=== PATIENT | male | born 1960 | race Caucasian/White ===

== ENCOUNTER 2022-03-02 11:15 | Emergency (ER) | payer OTHER ==
[~2022-03-02] VITALS: Ht 182.9 cm; Wt 108.9 kg
--- NOTE | 2022-03-02 11:25 | NUR ---
1) Patient arrived in ER accompanied by . 2) C/o of pr bleeding for since last night, more this morning. 3) Patient denies pain. 4) Patient refused to sit because of the possibility of soiling his trousers. Encouraged patient to lie on his sides. 5) Cleaned patient: (a) Obvious signs of bleeding (b) Blood looks fresh and had clotted 6) Awaiting to be seen by ER MD.
[2022-03-02] MEDS ORDERED: OLME20TA13 PO (11:30)
--- NOTE | 2022-03-02 11:54 | NUR ---
1) Patient seen by MD: (a) OH examination indicates external bleeing (b) Patient education on prevention of constipation provided. (c) Patient education on non-pharmacetical medication for pain provided. 2) PLAN: (a) Check patient's hgb. (b) If hgb is ok - discharge home (c) To see PCP if bleeding worsens or come back to ER. (d) Labs ordered at the time of this report.
[2022-03-02 12:13] LABS: HEMATOCRIT 41.6 % (36.7-47.1); MEAN CORPUSCULAR HEMOGLOBIN 31.5 uug (23.8-33.4); MEAN CORPUSCULAR VOLUME 91.2 fL (73.0-96.2); PLATELET COUNT (AUTO) 232 K/uL (152-348)
[2022-03-02 12:27] LABS: CREATININE 0.8 mg/dL (0.6-1.3); POTASSIUM 4.1 mmol/L (3.5-5.1)
--- NOTE | 2022-03-02 13:13 | NUR ---
Patient discharged to home in stable condition. Written and verbal after care instructions given. Patient verbalizes understanding of instructions. Stressed follow up or return to ER for worsening s/s.
== END 2022-03-02 13:13 | disposition home or self-care (01) ==
LOC: ER 11:15
DX: K64.4 Residual hemorrhoidal skin tags (principal); I10 Essential (primary) hypertension
CPT/HCPCS: 36415; 85025; A4663